=== PATIENT | female | born 1990 | race Hispanic/Latino ===

== ENCOUNTER 2023-07-02 22:39 | Observation (INO) | payer SELFPAY ==
--- OUTSIDE RECORDS SUMMARY | 2023-07-02 22:43 | XMS REPORT | Continuity of Care Document ---
:1990 Author Organization [facility] t Address [address] [facility] [address] [place] [address] Care Team Providers Name Role Phone Monika Pugh Primary Care Physician [phone] Visit, Silvio Nurse Attending Clinician Unavailable Monika Pugh Attending Clinician [phone] MONIKA MURRIETA Attending Clinician Unavailable NurseAntonio Exp Cprit Obgyn Attending Clinician Unavail able Doctor Unassigned, Bruin Attending Clinician Unavailable Noel Oropeza Attending Clinician NOEL DALTON Attending Clinician Unavailable NurseJillian Attending Clinician Unavailable Davin Ramirez MD Attending Clinician DAVIN RAMIREZ Attending Clinician Unavailable Pgy2 Attending Clinician Unavailable Js Dennis MD Attending Clinician Gray Aguilar Attending Clinician GRAY ROLLINS Attending Clinician Unavailable GRAY ROLLINS Admitting Clinician Unavailable Payers Payer Name Policy Type Policy Number Effective Date Expiration Date S ource Problems Condition Condition Condition Status Onset Resolution Last Treating Co mments Source Name Details Category Date Date Treatment Clinician Date Obesity Obesity Disease Active Univers (BMI (BMI 2-23 ity of 30-39.9) 30-39.9) 00:00: [place] 00 Medical Branch Encounter Encounter Disease Active 2018-11 Uni vers for for 1-18 it[place] of surve[place] of 00 Medical injectable injectable Br anch contracept contracept jules jules Depo-Prove Depo-Prove Disease Active 2018-11 U nivers ra ra -18 [place] of contrace[place] j[place] status j[place] status 00 Me dical Branch Other Other Disease Active 2018-11 Univers general general 18 ity of counseling counseling [place] and advice and advice 00 Me dical for for Branch contracept contracept jules jules management management Breakthrou Breakthrou Disease Active U nivers gh gh 2-26 ity of bleeding bleeding 00:00: [place] on depo on depo 00 Medical provera provera Branch Papanicola Papanicola Disease Active Overview : Univers ou smear ou smear 06-29 Formattin ity of of cervix of cervix 00:00: [place] of [place] with high with high 00 note Medi chika grade grade might be Branch squamous squamous different intraepith intraepith from the elial elial original. lesion lesion 08/25/2018 (HGSIL) (HGSIL) - LEEP done. Need for Need for Disease Active 2016-11 Unive rs influenza influenza 0-19 ity of vaccinatio vacc[place] Well woman Well woman Disease Active U nivers exam exam 5-03 ity of 00:00: [place] 00 Medical Branch Allergies, Adverse Reactions, Alerts Allergy Allergy Status Severity Reaction(s) Onset Inactive Treating Comm ents Source Name Type Date Date Clinician Naproxen Propensi Active Anaphylaxis U nivers Sodium ty to 07-22 ity of adverse 00:00: [place] reaction 00 Medical s Branch NAPROXEN DRUG Active Anaphylaxis Uni vers SODIUM INGREDI 07-22 ity of 00:00: [place] 00 Medical Branch Social History Social Habit Start Date Stop Date Quantity Comments Source Gender identity [facility] [place] [facility] Sexual orientation Univer sity [facility] Exposure to 2023-01-09 2023-01-19 Not sure University SARS-CoV-2 (event) 00:00:00 09:16:00 [facility] Alcohol intake 2023-01-19 2023-01-19 0 /d University of 00:00:00 00:00:00 [facility] Tobacco use and 2023-01-14 2023-01-14 Smokeless Universit y of exposure 00:00:00 00:00:00 tobacco non-user [facility] dical [facility] History of Social 2021-11-12 2021-11-12 Univers ity of function 00:00:00 00:00:00 [facility] Sex [birth year] Universit y of 00:00:00 00:00:00 [facility] Smoking Status Start Date Stop Date Source Never smoked tobacco [facility] Medications Ordered Filled Start Stop Current Ordering Indication Dosage Frequency Signature Comments Components Source Medication Medication Date Date Medication? Clinician (SIG) Name Name medroxyPROG 2023- Yes [id number] 150mg Univers ESTERone 05-14 ity of (DEPO-PROVE 14:45: 15:44 [place] RA) syringe 00 :00 Medical 150 mg Branch medroxyPROG 2023- Yes [id number] 150mg 150 mg, Univers ESTERone 05-14 Intramuscu ity of (DEPO-PROVE 14:45: 15:44 [facility] [place] RA) syringe 00 :00 [id number], Med ical 150 mg 3 doses, Branch First dose on Wed05/14/23 at 0945, Last dose on Wed10/29/23 at 0945, Routine medroxyPROG 2022- No [id number] 150mg Univers ESTERone 01-14 ity of (DEPO-PROVE 17:00: 16:23 [place] RA) syringe 00 :00 Medical 150 mg Branch medroxyPROG 2022-0 2022- No [id number] 150mg 150 mg, Univers ESTERone 01-14 Intramuscu ity of (DEPO-PROVE 17:00: 16:23 lar, ONCE, [place] RA) syringe 00 :00 1 dose, On Me dical 150 mg [place] Branch 01/14/23 at 1100, Routine medroxyPROG 2022- No [id number] 150mg Univers ESTERone 01-14 ity of (DEPO-PROVE 17:00: 16:23 [place] RA) syringe 00 :00 Medical 150 mg Branch medroxyPROG 2022- No [id number] 150mg 150 mg, Univers ESTERone 01-14 Intramuscu ity of (DEPO-PROVE 17:00: 16:23 lar, ONCE, [place] RA) syringe 00 :00 1 dose, On Me dical 150 mg [place] Branch 01/14/23 at 1100, Routine medroxyPROG 2021-11- No [id number] 150mg Univers ESTERone 12-23 ity of (DEPO-PROVE 15:00: 22:27 [place] RA) syringe 00 :00 Medical 150 mg Branch medroxyPROG 2021-11- No [id number] 150mg 150 mg, Univers ESTERone 12-23 Intramuscu ity of (DEPO-PROVE 15:00: 22:27 lar, ONCE, [place] RA) syringe 00 :00 1 dose, On Me dical 150 mg [place] Branch 10/22/22 at 0900, Routine ferrous 2020-11 Yes [id number] 325mg Take 1 Un jai sulfate 325 2-22 tablet by ity of mg (65 mg 00:00: mouth 2 [place] iron) 00 (two) Medical tablet times Branch daily. ferrous 2020-11 Yes [id number] 325mg Take 1 Un jai sulfate 325 2-22 tablet by ity of mg (65 mg 00:00: mouth 2 [place] iron) 00 (two) Medical tablet times Branch daily. ferrous 2020-11- No [id number] 325mg Take 1 U nivers sulfate 325 01-13- tablet by it y of mg (65 mg 00:00: 00:[place] :00 (two) Medical tablet times Branch daily. ferrous 2020-11- No [id number] 325mg Take 1 U nivers sulfate 325 01-13 tablet by it y of mg (65 mg 00:00: 00:00 [place] 00 :00 (two) Medical [facility] times Branch daily. Immunizations Ordered Filled Immunization Date Status Comments [facility] e Immunization Name Name HPV9 2023-03-04 Completed University of 00:00:00 [facility] HPV9 2023-03-04 Completed University of 00:00:00 [facility] HPV9 2023-03-04 Completed University of 00:00:00 [facility] HPV9 2023-03-04 Completed University of 00:00:00 [facility] HPV9 2023-01-19 Completed University of 00:00:00 [facility] HPV9 2023-01-19 Completed University of 00:00:00 [facility] HPV9 2023-01-19 Completed University of 00:00:00 [facility] HPV9 2023-01-19 Completed University of 00:00:00 [facility] HPV9 2023-01-19 Completed University of 00:00:00 [facility] HPV9 2023-01-19 Completed University of 00:00:00 [facility] Influenza Virus 2022-10-22 Completed Universit y of Vaccine Quad .5 mL 00:00:00 [facility] 6+ MO Branch Influenza Virus 2022-10-22 Completed Universit y of Vaccine Quad .5 mL 00:00:00 [facility] 6+ MO Branch Influenza Virus 2022-10-22 Completed Universit y of Vaccine Quad .5 mL 00:00:00 [facility] 6+ MO Branch Influenza Virus 2022-10-22 Completed Universit y of Vaccine Quad .5 mL 00:00:00 [facility] 6+ MO Branch Influenza Virus 2022-10-22 Completed Universit y of Vaccine Quad .5 mL 00:00:00 [facility] 6+ MO Branch Influenza Virus 2022-10-22 Completed Universit y of Vaccine Quad .5 mL 00:00:00 [facility] IM 6+ MO Branch Influenza Virus 2022-10-22 Completed Universit y of Vaccine Quad .5 mL 00:00:00 [facility] 6+ MO Branch Influenza Virus 2022-10-22 Completed Universit y of Vaccine Quad .5 mL 00:00:00 [facility] 6+ MO Branch Influenza Virus 2022-10-22 Completed Universit y of Vaccine Quad .5 mL 00:00:00 [facility] 6+ MO Branch Influenza Virus 2021-11-12 Completed Universit y of Vaccine Quad .5 mL 00:00:00 [place] [facility] IM 6+ MO Branch Influenza Virus 2021-11-12 Completed Universit y of Vaccine Quad .5 mL 00:00:00 [place] [facility] IM 6+ MO Branch Influenza Virus 2021-11-12 Completed Universit y of Vaccine Quad .5 mL 00:00:00 [place] [facility] IM 6+ MO Branch Influenza Virus 2021-11-12 Completed Universit y of Vaccine Quad .5 mL 00:00:00 [place] [facility] IM 6+ MO Branch Influenza Virus 2021-11-12 Completed Universit y of Vaccine Quad .5 mL 00:00:00 [place] [facility] IM 6+ MO Branch Influenza Virus 2021-11-12 Completed Universit y of Vaccine Quad .5 mL 00:00:00 [place] [facility] IM 6+ MO Branch Influenza Virus 2021-11-12 Completed Universit y of Vaccine Quad .5 mL 00:00:00 [place] [facility] 6+ MO Branch Influenza Virus 2021-11-12 Completed Universit y of Vaccine Quad .5 mL 00:00:00 [place] [facility] IM 6+ MO Branch Influenza Virus 2021-11-12 Completed Universit y of Vaccine Quad .5 mL 00:00:00 [place] [facility] 6+ MO Branch Influenza Virus 2021-11-12 Completed Universit y of Vaccine Quad .5 mL 00:00:00 [facility] 6+ MO Branch SARS-COV-2 COVID-19 2021-06-28 Completed Unive rsity of VACCINE - (MODERNA) 00:00:00 [facility] SARS-COV-2 COVID-19 2021-06-28 Completed Unive rsity of VACCINE - (MODERNA) 00:00:00 [facility] SARS-COV-2 COVID-19 2021-06-28 Completed Unive rsity of VACCINE - (MODERNA) 00:00:00 [facility] SARS-COV-2 COVID-19 2021-06-28 Completed Unive rsity of VACCINE - (MODERNA) 00:00:00 [facility] SARS-COV-2 COVID-19 2021-06-28 Completed Unive rsity of VACCINE - (MODERNA) 00:00:00 [facility] SARS-COV-2 COVID-19 2021-06-28 Completed Unive rsity of VACCINE - (MODERNA) 00:00:00 [facility] SARS-COV-2 COVID-19 2021-06-28 Completed Unive rsity of VACCINE - (MODERNA) 00:00:00 [facility] SARS-COV-2 COVID-19 2021-06-28 Completed Unive rsity of VACCINE - (MODERNA) 00:00:00 [facility] SARS-COV-2 COVID-19 2021-05-31 Completed Unive rsity of VACCINE - (MODERNA) 00:00:00 [facility] SARS-COV-2 COVID-19 2021-05-31 Completed Unive rsity of VACCINE - (MODERNA) 00:00:00 [facility] SARS-COV-2 COVID-19 2021-05-31 Completed Unive rsity of VACCINE - (MODERNA) 00:00:00 [facility] SARS-COV-2 COVID-19 2021-05-31 Completed Unive rsity of VACCINE - (MODERNA) 00:00:00 [facility] SARS-COV-2 COVID-19 2021-05-31 Completed Unive rsity of VACCINE - (MODERNA) 00:00:00 [facility] SARS-COV-2 COVID-19 2021-05-31 Completed Unive rsity of VACCINE - (MODERNA) 00:00:00 [facility] SARS-COV-2 COVID-19 2021-05-31 Completed Unive rsity of VACCINE - (MODERNA) 00:00:00 [facility] SARS-COV-2 COVID-19 2021-05-31 Completed Unive rsity of VACCINE - (MODERNA) 00:00:00 [facility] Influenza Virus 2020-09-11 Completed Universit y of Vaccine Quad .5 mL 00:00:00 [facility] IM 6+ MO Branch Influenza Virus 2020-09-11 Completed Universit y of Vaccine Quad .5 mL 00:00:00 [place] [facility] IM 6+ MO Branch Influenza Virus 2020-09-11 Completed Universit y of Vaccine Quad .5 mL 00:00:00 [place] [facility] IM 6+ MO Branch Influenza Virus 2020-09-11 Completed Universit y of Vaccine Quad .5 mL 00:00:00 [place] [facility] IM 6+ MO Branch Influenza Virus 2020-09-11 Completed Universit y of Vaccine Quad .5 mL 00:00:00 [facility] IM 6+ MO Branch Influenza Virus 2020-09-11 Completed Universit y of Vaccine Quad .5 mL 00:00:00 [place] [facility] IM 6+ MO Branch Influenza Virus 2020-09-11 Completed Universit y of Vaccine Quad .5 mL 00:00:00 [place] [facility] IM 6+ MO Branch Influenza Virus 2020-09-11 Completed Universit y of Vaccine Quad .5 mL 00:00:00 [place] [facility] IM 6+ MO Branch Influenza Virus 2020-09-11 Completed Universit y of Vaccine Quad .5 mL 00:00:00 [place] [facility] IM 6+ MO Branch Influenza Virus 2020-09-11 Completed Universit y of Vaccine Quad .5 mL 00:00:00 [place] [facility] IM 6+ MO Branch Influenza Virus 2019-10-09 Completed Universit y of Vaccine Quad .5 mL 00:00:00 [place] [facility] IM 6+ MO Branch Influenza Virus 2019-10-09 Completed Universit y of Vaccine Quad .5 mL 00:00:00 [facility] 6+ MO Branch Influenza Virus 2019-10-09 Completed Universit y of Vaccine Quad .5 mL 00:00:00 [place] [facility] 6+ MO Branch Influenza Virus 2019-10-09 Completed Universit y of Vaccine Quad .5 mL 00:00:00 [place] [facility] 6+ MO Branch Influenza Virus 2019-10-09 Completed Universit y of Vaccine Quad .5 mL 00:00:00 [place] [facility] 6+ MO Branch Influenza Virus 2019-10-09 Completed Universit y of Vaccine Quad .5 mL 00:00:00 [place] [facility] 6+ MO Branch Influenza Virus 2019-10-09 Completed Universit y of Vaccine Quad .5 mL 00:00:00 [place] [facility] 6+ MO Branch Influenza Virus 2019-10-09 Completed Universit y of Vaccine Quad .5 mL 00:00:00 [place] [facility] IM 6+ MO Branch Influenza Virus 2019-10-09 Completed Universit y of Vaccine Quad .5 mL 00:00:00 [place] [facility] IM 6+ MO Branch Influenza Virus 2019-10-09 Completed Universit y of Vaccine Quad .5 mL 00:00:00 [facility] 6+ MO Branch Varicella 2018-04-14 Completed University of (varivax)(chicken 00:00:00 [place] M edical pox) Branch Varicella 2018-04-14 Completed University of (varivax)(chicken 00:00:00 [place] M edical pox) Branch Varicella 2018-04-14 Completed University of (varivax)(chicken 00:00:00 [place] M edical pox) Branch Varicella 2018-04-14 Completed University of (varivax)(chicken 00:00:00 [place] M edical pox) Branch Varicella 2018-04-14 Completed University of (varivax)(chicken 00:00:00 [place] M edical pox) Branch Varicella 2018-04-14 Completed University of (varivax)(chicken 00:00:00 [place] M edical pox) Branch Varicella 2018-04-14 Completed University of (varivax)(chicken 00:00:00 [place] M edical pox) Branch Varicella 2018-04-14 Completed University of (varivax)(chicken 00:00:00 [place] M edical pox) Branch Varicella 2018-04-14 Completed University of (varivax)(chicken 00:00:00 [place] M edical pox) Branch Varicella 2018-04-14 Completed University of (varivax)(chicken 00:00:00 [place] M edical pox) Branch TDAP 2018-02-01 Completed University of 00:00:00 [facility] TDAP 2018-02-01 Completed University of 00:00:00 [facility] TDAP 2018-02-01 Completed University of 00:00:00 [facility] TDAP 2018-02-01 Completed University of 00:00:00 [facility] TDAP 2018-02-01 Completed University of 00:00:00 [facility] TDAP 2018-02-01 Completed University of 00:00:00 [facility] TDAP 2018-02-01 Completed University of 00:00:00 [facility] TDAP 2018-02-01 Completed University of 00:00:00 [facility] TDAP 2018-02-01 Completed University of 00:00:00 [facility] TDAP 2018-02-01 Completed University of 00:00:00 [facility] Influenza Virus 2017-09-09 Completed Universit y of Vaccine Quad IM 3+ 00:00:00 [facility] Influenza Virus 2017-09-09 Completed Universit y of Vaccine Quad IM 3+ 00:00:00 [facility] Influenza Virus 2017-09-09 Completed Universit y of Vaccine Quad IM 3+ 00:00:00 [facility] Influenza Virus 2017-09-09 Completed Universit y of Vaccine Quad IM 3+ 00:00:00 [facility] Influenza Virus 2017-09-09 Completed Universit y of Vaccine Quad IM 3+ 00:00:00 [facility] Influenza Virus 2017-09-09 Completed Universit y of Vaccine Quad IM 3+ 00:00:00 [facility] Influenza Virus 2017-09-09 Completed Universit y of Vaccine Quad IM 3+ 00:00:00 [facility] Influenza Virus 2017-09-09 Completed Universit y of Vaccine Quad IM 3+ 00:00:00 [facility] Influenza Virus 2017-09-09 Completed Universit y of Vaccine Quad IM 3+ 00:00:00 [facility] Influenza Virus 2017-09-09 Completed Universit y of Vaccine Quad IM 3+ 00:00:00 [facility] TDAP 2015-12-03 Completed University of 00:00:00 [facility] TDAP 2015-12-03 Completed University of 00:00:00 [facility] TDAP 2015-12-03 Completed University of 00:00:00 [facility] TDAP 2015-12-03 Completed University of 00:00:00 [facility] TDAP 2015-12-03 Completed University of 00:00:00 [facility] TDAP 2015-12-03 Completed University of 00:00:00 [facility] TDAP 2015-12-03 Completed University of 00:00:00 [facility] TDAP 2015-12-03 Completed University of 00:00:00 [facility] TDAP 2015-12-03 Completed University of 00:00:00 [facility] TDAP 2015-12-03 Completed University of 00:00:00 [facility] Influenza Virus 2015-08-15 Completed Universit y of Vaccine Quad IM 3+ 00:00:00 [facility] Influenza Virus 2015-08-15 Completed Universit y of Vaccine Quad IM 3+ 00:00:00 [facility] Influenza Virus 2015-08-15 Completed Universit y of Vaccine Quad IM 3+ 00:00:00 [facility] Influenza Virus 2015-08-15 Completed Universit y of Vaccine Quad IM 3+ 00:00:00 [facility] Influenza Virus 2015-08-15 Completed Universit y of Vaccine Quad IM 3+ 00:00:00 [facility] Influenza Virus 2015-08-15 Completed Universit y of Vaccine Quad IM 3+ 00:00:00 [facility] Influenza Virus 2015-08-15 Completed Universit y of Vaccine Quad IM 3+ 00:00:00 [facility] Branch Influenza Virus 2015-08-15 Completed Universit y of Vaccine Quad IM 3+ 00:00:00 [facility] Branch Influenza Virus 2015-08-15 Completed Universit y of Vaccine Quad IM 3+ 00:00:00 [facility] Branch Influenza Virus 2015-08-15 Completed Universit y of Vaccine Quad IM 3+ 00:00:00 [facility] Vital Signs Vital Name Observation Time Observation Value Comments Source Systolic blood 2023-05-14 13:23:00 100 mm[Hg] Univer sity of pressure [facility] Branch Diastolic blood 2023-05-14 13:23:00 60 mm[Hg] Unive rsity of pressure [facility] Branch Heart rate 2023-05-14 13:23:00 68 /min Universi ty of [facility] Body temperature 2023-05-14 13:23:00 36.22 Kimberlyn Univ ersity of [facility] Branch Respiratory rate 2023-05-14 13:23:00 17 /min Univ ersity of [facility] Branch Body height 2023-05-14 13:23:00 157.5 cm [facility]i ty [facility] [place] [facility] Body weight 2023-05-14 13:23:00 62.46 kg Universi ty [facility] [place] [facility] BMI 2023-05-14 13:23:00 25.19 kg/m2 [facility]i ty [facility] [place] [facility] Systolic blood 2023-05-07 19:53:00 106 mm[Hg] Univer sity of pressure [facility] Branch Diastolic blood 2023-05-07 19:53:00 74 mm[Hg] Unive rsity of pressure [facility] Branch Heart rate 2023-05-07 19:53:00 73 /min [facility]i ty [facility] [place] [facility] Body temperature 2023-05-07 19:53:00 36.44 Kimberlyn Univ ersity of [place] [facility] Respiratory rate 2023-05-07 19:53:00 18 /min Univ ersity of [place] [facility] Body height 2023-05-07 19:53:00 157.5 cm [facility]i ty [facility] [place] [facility] Body weight 2023-05-07 19:53:00 61.735 kg [facility] [place] [facility] BMI 2023-05-07 19:53:00 24.89 kg/m2 Universi ty of [facility] Branch Body temperature 2023-03-04 20:26:00 36.33 Kimberlyn Univ ersity of [place] [facility] Respiratory rate 2023-03-04 20:26:00 18 /min Univ ersity of [place] [facility] Body weight 2023-03-04 20:26:00 62.959 kg [facility]i ty [facility] [place] [facility] BMI 2023-03-04 20:26:00 24.59 kg/m2 [facility] [place] [facility] Body temperature 2023-01-19 15:16:00 36.17 Kimberlyn Univ ersity of [place] [facility] Body weight 2023-01-19 15:16:00 64.864 kg [facility]i ty [facility] [place] [facility] BMI 2023-01-19 15:16:00 25.33 kg/m2 [facility] ty [facility] [place] [facility] Systolic blood 2023-01-14 15:24:00 107 mm[Hg] Univer sity of pressure [place] [facility] Diastolic blood 2023-01-14 15:24:00 68 mm[Hg] Unive rsity of pressure [place] [facility] Heart rate 2023-01-14 15:24:00 59 /min [facility]i ty [facility] [place] [facility] Body temperature 2023-01-14 15:24:00 36.22 Kimberlyn Univ ersity of [place] [facility] Respiratory rate 2023-01-14 15:24:00 18 /min Univ ersity of [place] [facility] Body height 2023-01-14 15:24:00 160 cm [facility] [place] [facility] Body weight 2023-01-14 15:24:00 87.272 kg [facility] [place] [facility] BMI 2023-01-14 15:24:00 34.08 kg/m2 [facility] [place] [facility] Systolic blood 2022-10-22 15:10:00 104 mm[Hg] Univer sity of pressure [place] [facility] Diastolic blood 2022-10-22 15:10:00 65 mm[Hg] Unive rsity of pressure [place] [facility] Heart rate 2022-10-22 15:10:00 60 /min [facility]i ty [facility] [place] [facility] Body temperature 2022-10-22 15:10:00 36.44 Kimberlyn Univ ersity of [place] [facility] Respiratory rate 2022-10-22 15:10:00 18 /min Univ ersity of [place] [facility] Body height 2022-10-22 15:10:00 160 cm [facility] Body weight 2022-10-22 15:10:00 66.769 kg [facility] BMI 2022-10-22 15:10:00 26.08 kg/m2 [facility] Procedures Procedure Date / Time Performing Clinician Source Performed POCT TEST 2023-05-14 00:00:00 [facility] 2023-05-07 20:10:00 Monika Murrieta [facility] GARDASIL 9 (HPV 9V) 2023-03-04 19:32:18 [facility] 2023-02-24 05:01:00 Doctor Unassigned, No [facility] GARDASIL 9 (HPV 9V) 2023-01-19 15:17:55 [facility] 2023-01-14 15:29:00 Monika Murrieta Uni [facility] "RWSP EL ONLY" FLU 2022-10-22 15:12:29 [facility] 6+ Medical Bran ch MONTHS, IM, QUAD (FLUZONE/FLULAVAL/FLUARI X) Encounters Start End Encounter Admission Attending Care Care Encounter Source Date/Time Date/Time Type Type Clinicians Facility Department ID 2023-08-06 2023-08-06 Outpatient R [facility] [id number] Univers 09:00:00 09:00:00 ity [facility] 2023-07-02 2023-07-02 Outpatient SFA SFA [id number] [place] 07:41:49 07:41:49 [id number] F Philip 2023-05-14 2023-05-14 Nurse Visit, CoreyRmchp Nurse [facility] [id number] Univers 13:30:00 13:30:00 Visit Monika Murrieta MMI TEACHER [id number] ity [facility] [id number] Jacoby as MATERNAL [id number] Med ical & CHILD [address] [place] [address] 2023-05-14 2023-05-14 Outpatient R LIT, [facility] [id number] Univers 13:30:00 08:39:30 MONIKA ity o [facility] 2023-05-07 2023-05-07 Outpatient R LIT, [facility] [id number] Univers 15:00:00 16:07:22 MONIKA alstony o [facility] 2023-05-07 2023-05-07 [id number] Univers 15:00:00 16:07:22 Visit Monika Conroy MMI TEACHER 350.1.13.10 ity [facility] [id number] Jacoby as MATERNAL [phone] [address] 2023-03-04 2023-03-04 [facility] [id number] Univers 15:00:00 15:34:18 MONIKA aleciatamika o [facility] 2023-03-04 2023-03-04 Nurse Nurse, Antonio Rmchp Exp Cprit Obgyn U [facility] 1.2.840.114 [id number] Univers 15:00:00 15:15:00 Visit Monika Murrieta MMI TEACHER 350.1.13. 10 ity [facility] [id number] Jacoyb as MATERNAL [id number] [facility] & [address] 2023-02-25 2023-02-25 Outpatient R LIT, [facility] [id number] Univers 09:30:00 09:30:00 MONIKA ity o [facility] 2023-02-24 2023-02-24 Orders Doctor WHITLEY 1.2.840.114 [id number] Univers 00:00:00 00:00:00 Only Unassigned, JACQUELINE [id number] ity of [place] [facility] 4.2.7.2.686 Jacoby as [id number] [address] 2023-02-11 2023-02-11 Outpatient R LIT, [facility] [id number] Univers 08:30:00 08:30:00 MONIKA almanzar o [facility] 2023-02-11 2023-02-11 Outpatient R LIT [facility] [id number] Univers 08:30:00 08:30:00 MONIKA ity o [facility] 2023-01-19 2023-01-19 Nurse Nurse, Antonio Taylor Exp Cprit Obgyn U [facility] 1.2.840.114 [id number] Univers 09:30:00 09:30:00 Visit Monika Murrieta MMI TEACHER 350.1.13. 10 ity of [place] 4.2.7.2.686 Jacoby as MATERNAL [phone] [facility] & [address] 2023-01-19 2023-01-19 Outpatient R LIT [facility] [id number] [facility] 09:30:00 09:14:46 MONIKA almanzar o [facility] 2023-01-14 2023-01-14 Outpatient R LIT [facility] [id number] Univers 09:15:00 10:25:12 MONIKA almanzar o [facility] 2023-01-14 2023-01-14 Office Lit [facility] 1.2.045.653 [id number] Univers 09:15:00 10:25:12 Visit Monika Conroy MMI TEACHER 350.1.13.10 ity of [place] 4.2.7.2.686 Jacoby as MATERNAL [id number] [facility] & [address] 2023-01-14 2023-01-14 Outpatient R LIT [facility] [id number] Univers 09:15:00 09:15:00 MONIKA almanzar o [facility] 2022-10-22 2022-10-22 Outpatient R LIT [facility] [id number] Univers 09:00:00 09:11:22 MONIKA alstony o [facility] 2022-10-22 2022-10-22 Nurse Visit, Silvio Nurse [facility] 1.2 .840.114 [id number] Univers 09:00:00 09:11:22 Visit Monika Murrieta MMI TEACHER 350.1.13. 10 ity of [facility] 4.2.7.2.686 Jacoby as MATERNAL [id number] [facility] & CHILD [address] [place] [address] 2022-07-30 2022-07-30 Nurse Visit, 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 [id number] ity of [facility] 4.2.7.2.686 Jacoby as MATERNAL [id number] [facility] & CHILD [address] [place] [address] 2022-07-30 2022-07-30 Outpatient R KRYSTLE [facility] [id number] Univers 09:00:00 09:00:00 NOEL jiang [facility] 2022-07-30 2022-07-30 Outpatient Ophelia DALTON [facility] [id number] Univers 08:30:00 08:30:00 MARGARITORICHARD alstontamika jiang [facility] 2022-07-30 2022-07-30 Outpatient R KRYSTLE [facility] [id number] Univers 08:30:00 08:30:00 JANETRICHARD aleciatamika jiang [facility] 2022-07-30 2022-07-30 Orders Doctor GUTIERREZ 1.2.840.114 [id number] Univers 00:00:00 00:00:00 Only Unassigned, JACQUELINE 350.1.13.10 ity of [place] [facility] 4.2.7.2.686 Jacoby as [id number] [address] 2022-07-30 2022-07-[address] [facility] 1.2.840.114 [id number] Univers 00:00:00 00:00:00 Monika C MMI TEACHER [id number] ity of [facility] 4.2.7.2.686 Jacoby as MATERNAL [id number] [facility] & CHILD [address] [place] [address] 2022-07-29 2022-07-29 Outpatient R [facility] [id number] Univers 08:00:00 08:00:00 ity of [facility] 2022-05-07 2022-05-07 Nurse Visit, Ang-Rmchp Nurse [facility] 1.2 .840.114 [id number] Univers 08:00:00 08:12:29 Visit Noel Dalton Ophelia MMI TEACHER 350.1.13.10 ity of [facility] 4.2.7.2.686 Jacoby as MATERNAL [id number] [facility] & CHILD [address] [place] [address] 2022-05-07 2022-05-07 Outpatient R [facility] [id number] Univers 08:00:00 08:00:00 ity of [facility] 2022-05-07 2022-05-07 Outpatient R KRYSTLE [facility] [id number] Univers 08:00:00 08:00:00 NOEL jiang [facility] 2022-05-06 2022-05-06 [facility] 1.2.840.114 [id number] Univers 00:00:00 00:00:00 Monika Conroy MMI TEACHER 350.1.13.10 ity of [facility] 4.2.7.2.686 Jacoby as MATERNAL [phone] [facility] & CHILD [address] [place] [address] 2022-04-06 2022-04-06 Office Paulslick, [facility] 1.2.595.929 [id number] Univers 09:00:00 09:12:23 Visit Monika Conroy MMI TEACHER 350.1.13.10 ity of [facility] 4.2.7.2.686 Jacoby as MATERNAL [id number] [facility] & CHILD [address] [place] [address] 2022-04-06 2022-04-06 Outpatient R AKINSIPE, [facility] [id number] Univers 09:00:00 09:12:23 MONIKA ity o [facility] 2022-04-06 2022-04-06 Outpatient R AKINSIPE, [facility] [id number] Univers 09:00:00 09:00:00 MONIKA ity o [facility] 2022-04-06 2022-04-06 Outpatient R AKINSIPE, [facility] [id number] Univers 09:00:00 09:00:00 MONIKA ity o [facility] 2022-02-042022-02-04 Outpatient R LIT, [facility] [id number] Univers 09:00:00 10:00:17 MONIKA almanzar o [facility] 2022-02-04 2022-02-04 [facility] 1.2.042.032 [id number] Univers 09:00:00 10:00:[address] [facility] MMI TEACHER [id number] [address]y [address]686 Jacoby as MATERNAL [id number] [facility] & CHILD [address] [place] [address] 2022-02-04 2022-02-04 Outpatient R CHRISTOPHERPE, [facility] [id number] Univers 09:00:00 09:00:00 MONIKA almanzar [facility] 2022-02-04 2022-02-04 Orders Doctor GUTIERREZ 1.2.840.114 [id number] Univers 00:00:00 00:00:00 Only Unassigned, JACQUELINE 350.1.13.10 ity of [place] [id number] Jacoby as [id number] [address] 2021-11-12 2021-11-12 Outpatient R LIT, [facility] [id number] Univers 09:45:00 10:55:23 MONIKA almanzar o [facility] 2021-11-12 2021-11-12 [facility] [id number] Univers 09:45:00 10:55:[address] [facility] MMI TEACHER 350.1.13.10 ity [facility] 4.2.7.2.686 Jacoby as MATERNAL [id number] [facility] & CHILD [address] [place] [address] 2021-11-12 2021-11-12 Outpatient R CHRISTOPHERPE, [facility] [id number] Univers 09:45:00 09:45:00 MONIKA almanzar o [facility] 2021-11-12 2021-11-12 Outpatient R KRYSTLE, [facility] [id number] Univers 08:15:00 08:15:00 NOEL ittamika o [facility] 2021-10-27 2021-10-27 Nurse Nurse, Jillian Reyes [employer]etics [facility] 1 .2.840.114 [id number] Univers 14:35:15 15:05:15 Visit James Davin Silver SPECIALTY 350.1.13.10 ity of [place] [id number] [facility] [address] 2021-10-27 2021-10-27 Outpatient R JAMESDAVIN [facility] [id number] Univers 14:30:00 14:30:00 ity of [facility] 2021-10-27 2021-10-27 Orders Doctor GUTIERREZ 1.2.840.114 [id number] Univers 00:00:00 00:00:00 Only Unassigned, JACQUELINE 350.1.13.10 ity of [facility] 4.2.7.2.686 Jacoby as [id number] [facility] [address] 2021-08-20 2021-08-20 [facility] 1.2 .840.114 [id number] Univers 09:13:58 09:28:58 Visit Noel Dalton MMI TEACHER 350.1.13.10 ity of [facility] 4.2.7.2.686 Jacoby as MATERNAL [id number] Med ical & CHILD [address] [place] [address] 2021-08-20 2021-08-20 Outpatient R [facility] [id number] Univers 09:00:00 09:00:00 ity of [facility] 2021-07-16 2021-07-16 Office Pgy2 [facility] 1.2.696.509 [id number] Univers 13:56:49 15:15:24 Visit Js Dennis [place] 350.1.13.10 ity of [facility] 4.2.7.2.[place] [id number] [facility] [address] 2021-07-16 2021-07-16 Outpatient R [facility] [id number] Univers 13:20:00 13:20:00 ity of [facility] 2021-06-11 2021-06-11 Telephone Krystle [facility] [id number] Univers 00:00:00 00:00:00 Roshunda R MMI TEACHER 350.1.13.10 ity of [place] 4.2.7.2.686 Jacoby as MATERNAL [id number] [facility] & CHILD [address] [place] [address] 2021-06-09 2021-06-09 Hospital Krystle BENIGNO 1.2.840.114 [id number] Univers 09:30:00 23:59:00 Encounter Margaritorichard R HEALTH 350.1.13.10 ity of [facility] 4.2.7.2.[place] [id number] [facility] [address] [place] [address] 2021-06-09 2021-06-09 Outpatient R KRYSTLE [facility] [id number] Univers 00:00:00 00:00:00 MARGARITORICHARD almanzar o [facility] 2021-06-04 2021-06-04 [facility] [id number] Univers 16:15:00 16:15:00 JANETPEREZ almanzar o [facility] 2021-06-03 2021-06-03 Office Krystle [facility] 1.2.840.114 [id number] Univers 08:15:26 08:46:14 Visit Margaritopatriciamckenna Ophelia MMI TEACHER 350.1.13.10 ity of [facility] 4.2.7.2.686 Jacoby as MATERNAL [phone] [address] 2021-06-03 2021-06-03 Outpatient R KRYSTLE [facility] [id number] Univers 08:15:00 08:15:00 NOEL jenelle o [facility] 2021-05-29 2021-05-29 Outpatient R [facility] [id number] Univers 08:30:00 08:30:00 ity of [facility] 2021-05-28 2021-05-28 Nurse Visit, Antonio-Rmchp Nurse [facility] 1.2 .840.114 [id number] Univers 09:00:12 09:28:58 Visit Monika Murrieta MMI TEACHER 350.1.13. 10 ity of [facility] 4.2.7.2.686 Jacoby as MATERNAL [id number] [facility] & CHILD [address] [place] [address] 2021-05-28 2021-05-28 Outpatient R [facility] [id number] Univers 09:00:00 09:00:00 ity [facility] 2021-03-06 2021-03-06 Outpatient R [facility] [id number] Univers 09:00:00 09:00:00 ity of [facility] 2021-03-06 2021-03-06 Nurse Visit, Silvio Nurse [facility] 1.2 .840.114 [id number] Univers 08:23:56 08:41:45 Visit Noel Dalton MMI TEACHER 350.1.13.10 ity of [facility] 4.2.7.2.686 Jacoby as MATERNAL [id number] [facility] & CHILD [address] [place] [address] 2021-03-06 2021-03-06 Outpatient R KRYSTLE [facility] [id number] Univers 08:30:00 08:30:00 [facility] 2020-12-27 2020-12-27 Orders Doctor GUTIERREZ 1.2.840.114 [id number] Univers 00:00:00 00:00:00 Only Unassigned, JACQUELINE 350.1.13.10 ity of [place] [facility] 4.2.7.2.686 Jacoby as [id number] [address] 2020-12-12 2020-12-12 Nurse Visit, Silvio Nurse [facility] 1.2 .840.114 [id number] Univers 15:30:31 15:45:27 Visit Noel Dalton MMI TEACHER 350.1.13.10 ity of [facility] 4.2.7.2.686 Jacoby as MATERNAL [id number] [facility] & CHILD [address] [place] [address] 2020-12-12 2020-12-12 Outpatient R [facility] [id number] Univers 15:30:00 15:30:00 ity of [facility] 2020-12-04 2020-12-04 Outpatient R [facility] [id number] Univers 09:00:00 09:00:00 ity [facility] 2020-11-22 2020-11-22 Emergency Ayo COCESAR 1.2.840.114 [id number] Univers 01:27:00 03:23:00 Gray Abrahan Bulpitt 350.1.13.10 i ty [facility] 4.2.7.2.686 [facility] [phone] [facility] [address] 2020-11-22 2020-11-22 Emergency X AYO [facility] ERT [id number] Univers 01:27:00 03:23:00 GRAY ity [facility] 2020-10-10 2020-10-10 Outpatient R KRYSTLE [facility] [id number] Univers 15:00:00 15:00:00 NOEL almanzar o f [facility] 2020-10-10 2020-10-10 [facility] 1.2.840.114 [id number] Univers 09:36:10 10:36:36 Visit Noel Jacinto MMI TEACHER 350.1.13.10 ity [facility] 4.2.7.2.686 Jacoby as MATERNAL [phone] Med ical & CHILD [address] [place] [address] 2020-10-10 2020-10-10 Outpatient R KRYSTLE [facility] [id number] Univers 09:30:00 09:30:00 NOEL almanzar o tomas [facility] 2020-09-11 2020-09-11 Nurse Visit, [facility] Peoriap Nurse [facility] 1.2 .840.114 [id number] Univers 08:52:07 09:07:07 Visit Janet Daltonperze Jacinto MMI TEACHER 350.1.13.10 ity [facility] 4.2.7.2.686 Jacoby as MATERNAL [id number] [facility] & [address] 2020-09-11 2020-09-11 Outpatient R [facility] [id number] Univers 08:30:00 08:30:00 ity [facility] 2020-09-11 2020-09-11 [facility] [id number] Univers 08:30:00 08:30:00 VENKATAA aleciay o f [facility] 2020-09-11 2020-09-11 Outpatient R [facility] [id number] Univers 08:00:00 08:00:00 ity of [facility] 2020-09-11 2020-09-11 Orders Doctor GUTIERREZ 1.2.840.114 [id number] Univers 00:00:00 00:00:00 Only Unassigned, JACQUELINE 350.1.13.10 ity of [facility] 4.2.7.2.686 Jacoby as [id number] [address] 2020-06-18 2020-06-18 [facility] 1.2 .840.114 [id number] Univers 08:11:30 08:26:30 Visit Noel Dalton MMI TEACHER 350.1.13.10 ity of [address]686 Jacoby as MATERNAL [id number] [facility] & [address] 2020-06-18 2020-06-18 Outpatient R [facility] [id number] Univers 08:00:00 08:00:00 ity of [facility] 2020-03-26 2020-03-26 Nurse Visit, [facility] Nurse [facility] 1.2 .840.114 [id number] Univers 08:23:22 08:40:44 Visit Monika Murrieta MMI TEACHER 350.1.13. 10 ity of [place] [id number] Jacoby as MATERNAL [id number] [address] 2020-03-26 2020-03-26 Outpatient R LIT [facility] [id number] Univers 08:30:00 08:30:00 MONIKA ity o f [facility] 2020-01-02 2020-01-02 Nurse Visit, [facility] Nurse [facility] 1.2 .840.114 [id number] Univers 09:02:44 09:41:12 Visit Noel Dalton MMI TEACHER 350.1.13.10 ity of [place] [id number] Jacoby as MATERNAL [id number] [facility] & CHILD [address] [place] [address] Results Test Description Test Time Test Comments Results Result Comments Source POCT TEST 2023-05-14 13:28:00 Test Item Value Reference Range Interpretation Comme nts POCT PREG (test code = 1605) Negative On board controls acceptable with C Line (test code = 3574) Yes POCT PREG LOT # (test code = 3575) POCT PREG TEST DATE (test code = 3576[id number] 20:10:00 Test Item Value Reference Range Interpretation Comments POCT PREG (test code = 1605) Negative On board controls acceptable with C Yes Line (test code = 3574) POCT PREG LOT # (test code = 3575) POCT PREG TEST DATE (test code = 3576) [facility] [id number] 20:10:00 Test Item Value Reference Range Interpretation Comments POCT PREG (test code = 1605) Negative On board controls acceptable with C Yes Line (test code = 3574) POCT PREG LOT # (test code = 3575) POCT PREG TEST DATE (test code = 3576) [facility] [id number] 15:29:00 Test Item Value Reference Range Interpretation Comments POCT PREG (test code = 1605) Negative On board controls acceptable with C Yes Line (test code = 3574) POCT PREG LOT # (test code = 3575) POCT PREG TEST DATE (test code = 3576) [facility] [id number] 15:29:00 Test Item Value Reference Range Interpretation Comments POCT PREG (test code = 1605) Negative On board controls acceptable with C Yes Line (test code = 3574) POCT PREG LOT # (test code = 3575) POCT PREG TEST DATE (test code = 3576) [facility]
[2023-07-02] MEDS ORDERED: NA CHLORIDE 0.9% 1,000 ML ONE (23:43)
[2023-07-03 00:09] LABS: Absolute Lymphocytes (CBC) 1.6 K/uL (0.7-4.9); Hematocrit 37.6 % (36.0-45.0); Lymphocytes % 10.6 % (15.3-44.8); MCV 80.8 fL (80-100); MPV 6.5 fL (7.6-11.3); Platelets 333 thou/uL (152-406); RBC Red Blood Cell Count 4.65 M/uL (3.86-4.86)
[2023-07-03 00:16] LABS: Specific Gravity 1.007 (1.005-1.030); Urine Bacteria None Seen /HPF (<20); Urine Bilirubin NEGATIVE (Negative); Urine Blood 1+ (Negative); Urine Clarity Turbid (Clear); Urine Color Colorless (Yellow); Urine Glucose NEGATIVE (Negative); Urine Protein NEGATIVE (Negative); Urine RBC <5 /HPF (None Seen); Urine Urobilinogen Normal (Normal); Urine WBC Clump Rare /HPF (None Seen)
[2023-07-03 00:19] LABS: Protime INR 1.23
[2023-07-03] MEDS ORDERED: dexAMETHasone 10 MG/ML VIAL ONE (00:41)
[2023-07-03] MEDS ORDERED: NA CHLORIDE 0.9% 1,000 ML ONE ×2 (00:41→04:59)
[2023-07-03 00:48] LABS: Albumin 3.6 g/dL (3.4-5.0); Bilirubin Direct 0.1 mg/dL (0-0.2); Bilirubin Indirect, Calculated 0.2 mg/dL (0.2-0.8); Bilirubin Total 0.3 mg/dL (0.2-1.0); Magnesium 2.5 mg/dL (1.6-2.4); Potassium 3.4 mEq/L (3.5-5.1); Troponin High Sensitivity 9.4 pg/mL (<58.9)
[2023-07-03 00:49] LABS: Protein, Total 8.4 g/dL (6.4-8.2)
[2023-07-03] MEDS ORDERED: CEFTRIAXONE 1000 MG/VIAL ONE (03:52)
[2023-07-03] MEDS ORDERED: NA CHLORIDE 0.9% 50 ML ONE (03:53)
[2023-07-03] MEDS ORDERED: CLINDAMYCIN 900MG/D5W 900 MG/50 ML IVPB IV ONE (03:53)
--- NOTE | 2023-07-03 03:53 | ER ---
Nurse's Notes [facility] Name: Daphnie Barrientos Age: 32 yrs Sex: Female : 1990 Arrival Date: 07/02/2023 Time: 22:39 Bed 9 Private MD: Diagnosis: Peritonsillar abscess-right Presentation: 07/02 23:15 Chief complaint: Patient states: I have a ba infection in my throat and ear and i went kd3 to the doctor this morning and was sent home with an antibiotic, cetrizine and ibuprofen. Around 7 PM i nearly fainted and my family called EMS. EMS said that my blood pressure was low. At around 10 pm, my rechecked it and it was in the 60's. I do get anemic sometimes. Coronavirus screen: Vaccine status: Patient reports receiving the 2nd dose of the covid vaccine. Ebola Screen: No symptoms or risks identified at this time. Initial Sepsis Screen: Does the patient meet any 2 criteria? No. Patient's initial sepsis screen is negative. Does the patient have a suspected source of infection? No. Patient's initial sepsis screen is negative. Risk Assessment: Do you want to hurt yourself or someone else? Patient reports no desire to harm self or others. Onset of symptoms was July 02, 2023. 23:15 Method Of Arrival: Ambulatory kd3 23:15 Acuity: MAIDA 3 kd3 Triage Assessment: 23:19 General: Appears in no apparent distress. Behavior is calm, cooperative. Pain:. EENT: kd3 Throat is reddened. 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 - Social history:: Smoking status: Patient denies any tobacco usage or history of. Screenin/12 00:04 [facility] ED Fall Risk Assessment (Adult) History of falling in the last 3 months, kd3 including since admission No falls in past 3 months (0 pts) Confusion or Disorientation No (0 pts) Intoxicated or Sedated No (0 pts) Impaired Gait No (0 pts) Mobility Assist Device Used No (0 pt) Altered Elimination No (0 pt) Score/Fall Risk Level 0 - 2 = Low Risk Maintained a safe environment. Abuse screen: Denies threats or abuse. Denies injuries from another. Nutritional screening: No deficits noted. Tuberculosis screening: No symptoms or risk factors identified. Assessment: 00:01 General: Appears uncomfortable, ill, Behavior is calm, cooperative. Neuro: Level of kd3 Consciousness is awake, alert, obeys commands, Oriented to person, place, time, situation. Cardiovascular: Patient's skin is warm and dry. Respiratory: Airway is patent Trachea midline Respiratory effort is even, unlabored, Respiratory pattern is regular, symmetrical. GI: No deficits noted. 00:02 General: Pt reported feeling dizzy from moving from a laying to a sitting position . kd3 03:58 Reassessment: Patient appears in no apparent distress at this time. Patient and/or kl family updated on plan of care and expected duration. Pain level reassessed. Patient is alert, oriented x 3, equal unlabored respirations, skin warm/dry/pink. Patient states feeling better. Patient states symptoms have improved. Vital Signs: 07/02 23:15 BP 102 / 62; Pulse 70; Resp 16; Pulse Ox 98% ; Weight 62.6 kg; Height 5 ft. 3 in. ; kd3 07/03 00:03 BP 91 / 58 Supine; Pulse 68; Resp 19 S; Pulse Ox 100% on R/A; kd3 00:03 BP 99 / 63 Sitting; Pulse 65; Resp 20 S; Pulse Ox 100% on R/A; kd3 00:03 BP 93 / 63 Standing; Pulse 68; Resp 18 S; Pulse Ox 99% on R/A; kd3 00:03 Temp 99(O); kd3 00:41 BP 100 / 65; Pulse 68; Resp 20; Pulse Ox 100% on R/A; kd3 03:58 BP 88 / 58; Pulse 72; Resp 18; Pulse Ox 99% on R/A; kl 04:51 BP 95 / 64; Pulse 70; Resp 15; Pulse Ox 98% on R/A; kl 05:01 Temp 98.1(O); kl 07/02 23:15 Body Mass Index 24.45 (62.60 kg, 160.02 cm) kd3 ED Course: 07/02 22:40 Patient arrived in ED. jj6 23:07 Flaco Echeverria PA is PHCP. cp 23:07 Flaco Wang MD is Attending Physician. cp 23:15 Ju Webb, RN is Primary Nurse. kd3 23:19 Triage completed. kd3 23:19 Arm band placed on right wrist. kd3 23:45 Inserted saline lock: 20 gauge in right antecubital area, using aseptic technique. kd3 Blood collected. 23:55 Chest Single View XRAY In Process Unspecified. EDMS 07/03 00:01 Urinalysis W/Microscopic Sent. kd3 00:01 Basic Metabolic Panel Sent. kd3 00:01 CBC with Diff Sent. kd3 00:01 Hepatic Function Sent. kd3 00:01 Troponin High Sensitivity Sent. kd3 00:01 Ptt, Activated Sent. kd3 00:01 Protime (+inr) Sent. kd3 00:01 Magnesium Sent. kd3 00:01 PREGU Sent. kd3 00:05 Patient has correct armband on for positive identification. Placed in gown. Bed in low kd3 position. Call light in reach. Side rails up X2. Provided Education on: . 00:36 Lactate w/ 2H reflex if indic. Sent. kd3 00:36 Group A Streptococcus Rapid Sc Sent. kd3 00:36 [place] Screen Sent. kd3 00:36 Inserted saline lock: 20 gauge in left antecubital area, using aseptic technique. Blood kd3 collected. 00:41 No provider procedures requiring assistance completed. kd3 02:11 CT Soft Tissue Neck W/contr In Process Unspecified. EDMS 03:51 Mark Aguayo MD is Hospitalizing Provider. cp 04:51 No apparent distress. Resting quietly. Appears to be sleeping. kl 05:02 Patient admitted, IV remains in place. kl Administered Medications: 00:01 Drug: NS 0.9% IV 1000 ml Route: IV; Rate: 1 bolus; Site: right antecubital; kd3 04:52 Follow up: IV Intake: 1000ml kl 04:53 Follow up: IV Intake: 1000ml kl 00:29 Not Given (Patient Refused): Ondansetron IVP 4 mg IVP once; over 2 minutes kd3 00:36 Drug: Decadron - Dexamethasone IVP 10 mg Route: IVP; Site: right antecubital; kd3 04:53 Follow up: Response: No adverse reaction kl 00:36 Drug: NS 0.9% IV 1000 ml Route: IV; Rate: 1 bolus; Site: right antecubital; kd3 03:40 Drug: Rocephin IV 1 grams Route: IV; Rate: calculated rate; Site: right antecubital; 03:58 Follow up: IV Status: Completed infusion; IV Intake: 50ml kl 03:58 Drug: Clindamycin IVPB 900 mg Route: IVPB; Infused Over: 30 mins; Site: right kl antecubital; 04:30 Follow up: IV Status: Completed infusion; IV Intake: 50ml kl 04:51 Drug: NS 0.9% IV 1000 ml Route: IV; Rate: 1 bolus; Site: right antecubital; Medication: 00:04 VIS not applicable for this client. kd3 Intake: 03:58 IV: 50ml; Total: 50ml. kl 04:30 IV: 50ml; Total: 100ml. kl 04:52 IV: 1000ml; Total: 1100ml. kl 04:53 IV: 1000ml; Total: 2100ml. kl Outcome: 03:52 Decision to Hospitalize by Provider. cp 05:02 Admitted to Med/surg accompanied by nurse, via wheelchair, room 229, Report called to travis [place] 05:02 Condition: improved 05:02 Discharge instructions given to patient, family, Instructed on the need for admit, Demonstrated understanding of instructions. 05:34 Patient left the ED. Signatures: Dispatcher [employer] EDLyly Huitron, RN RN Flaco Doan PA PA Renetta Pisano [email or web address] Ju Webb, RN RN kd3
--- NOTE | 2023-07-03 03:53 | EDPHYS ---
Physician Documentation [facility] Name: Daphnie Barrientos Age: 32 yrs Sex: Female : 1990 Arrival Date: 07/02/2023 Time: 22:39 Bed 9 Private MD: ED Physician Flaco Wang HPI: 07/02 23:45 This 32 yrs old Female presents to ER via Ambulatory with complaints of Ear cp Pain, Blood Pressure Problem. 23:45 The patient presents with sore throat, dysphagia, of both solids and liquids. The cp patient describes throat pain as constant. Onset: The symptoms/episode began/occurred for past several days. Severity of symptoms: in the emergency department the symptoms are unchanged, despite home interventions. Associated signs and symptoms: Pertinent positives: dysphagia, earache, fever, Pertinent negatives cough, flu-like symptoms. 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 - Social history:: Smoking status: Patient denies any tobacco usage or history of. ROS: 23:50 Constitutional: Positive for poor PO intake, Negative for body aches, chills, fever. cp 23:50 Eyes: Negative for injury, pain, redness, and discharge. cp 23:50 ENT: Positive for difficulty swallowing, sore throat, Negative for drainage from ear(s), difficulty handling secretions. 23:50 Neck: Positive for pain with movement, pain at rest. 23:50 Cardiovascular: Negative for chest pain, palpitations. 23:50 Respiratory: Negative for cough, shortness of breath, wheezing. 23:50 Abdomen/GI: Negative for abdominal pain, vomiting, diarrhea, constipation. 23:50 : Negative for urinary symptoms. 23:50 Skin: Negative for cellulitis, rash. 23:50 Neuro: Positive for near syncope, Negative for altered mental status, dizziness, headache, weakness. 23:50 All other systems are negative. Exam: 23:35 ECG was reviewed by the Attending Physician. cp 23:55 Constitutional: The patient appears in no acute distress, alert, awake, cp non-diaphoretic, non-toxic, well developed, well nourished, uncomfortable. 23:55 Head/Face: Normocephalic, atraumatic. cp 23:55 Eyes: Periorbital structures: appear normal, Conjunctiva: normal, no exudate, no injection, Sclera: no appreciated abnormality, Lids and lashes: appear normal, bilaterally. 23:55 ENT: External ear(s): are unremarkable, Ear canal(s): are normal, clear, TM's: dullness, bilaterally, Nose: is normal, Mouth: Lips: moist, Oral mucosa: pink and intact, moist, Posterior pharynx: Airway: no evidence of obstruction, patent, Tonsils: bilaterally enlarged, with right markedly larger than left, uvula shifted to left, erythema, that is moderate, Voice: is muffled. 23:55 Neck: ROM/movement: limited range of motion, is not appreciated, Meningeal signs: are not present. 23:55 Chest/axilla: Inspection: normal. 23:55 Cardiovascular: Rate: normal, Rhythm: regular. 23:55 Respiratory: the patient does not display signs of respiratory distress, Respirations: normal, no use of accessory muscles, no retractions, labored breathing, is not present, Breath sounds: are clear throughout, no decreased breath sounds, no stridor, no wheezing. 23:55 Abdomen/GI: Inspection: abdomen appears normal, Palpation: abdomen is soft and non-tender, in all quadrants. 23:55 Back: pain, is absent, ROM is normal. 23:55 Neuro: Orientation: to person, place \T\ time. Mentation: is normal, Motor: moves all fours, strength is normal. Vital Signs: 23:15 BP 102 / 62; Pulse 70; Resp 16; Pulse Ox 98% ; Weight 62.6 kg; Height 5 ft. 3 in. ; kd3 08/12 00:03 BP 91 / 58 Supine; Pulse 68; Resp 19 S; Pulse Ox 100% on R/A; kd3 00:03 BP 99 / 63 Sitting; Pulse 65; Resp 20 S; Pulse Ox 100% on R/A; kd3 00:03 BP 93 / 63 Standing; Pulse 68; Resp 18 S; Pulse Ox 99% on R/A; kd3 00:03 Temp 99(O); kd3 00:41 BP 100 / 65; Pulse 68; Resp 20; Pulse Ox 100% on R/A; kd3 03:58 BP 88 / 58; Pulse 72; Resp 18; Pulse Ox 99% on R/A; kl 04:51 BP 95 / 64; Pulse 70; Resp 15; Pulse Ox 98% on R/A; kl 05:01 Temp 98.1(O); kl 07/02 23:15 Body Mass Index 24.45 (62.60 kg, 160.02 cm) kd3 MDM: 07/02 23:07 Patient medically screened. 07/03 03:35 Data reviewed: vital signs, nurses notes, lab test result(s), radiologic studies, CT cp scan, I have discussed the patient's presentation/case with the attending Emergency Department Physician;. 03:45 Management of patient was discussed with the following: Groundskeeping Maintenance: DR Mccall, ENT, cp will consult and see patient later this morning and requests admission to services of hospitalist. 03:50 Consideration of Admission/Observation Patient was admitted/placed on observation. cp 03:50 Management of patient was discussed with the following: Hospitalist: Carla Yanez NP cp will admit after discussion. Counseling: I had a detailed discussion with the patient and/or guardian regarding: the historical points, exam findings, and any diagnostic results supporting the discharge/admit diagnosis, lab results, radiology results, the need for further work-up and treatment in the hospital. Response to treatment: the patient's symptoms have mildly improved after treatment, and as a result, I will admit patient. 07/02 23:21 Order name: Basic Metabolic Panel; Complete Time: : 3 07/03 03:18 Interpretation: Normal except: K 3.4; GLUC 128. 07/02 23:21 Order name: CBC with Diff; Complete Time: : kd3 07/03 03:19 Interpretation: Normal except: WBC 15.30; MCH 26.3; MPV 6.5; SHARI% 80.1; LYM% 10.6; NEUT cp A 12.3; MNA 1.4. 07/02 23:21 Order name: Hepatic Function; Complete Time: : kd3 07/02 23:21 Order name: Magnesium; Complete Time: : kd3 07/03 03:19 Interpretation: Abnormal: MG 2.5. 07/02 23:21 Order name: Protime (+inr); Complete Time: :08 kd3 07/02 23:21 Order name: Ptt, Activated; Complete Time: 01:08 kd3 07/02 23:21 Order name: Troponin High Sensitivity; Complete Time: 01:08 kd3 07/02 23:35 Order name: Urinalysis W/Microscopic; Complete Time: 01:08 cp 07/02 23:35 Order name: PREGU; Complete Time: 01:08 cp 07/03 00:09 Order name: Strep cp 07/03 00:35 Order name: Grady Screen; Complete Time: 03:18 EDMS 07/03 00:35 Order name: Lactate w/ 2H reflex if indic.; Complete Time: 01:08 EDMS 07/03 00:35 Order name: Group A Streptococcus Rapid Sc; Complete Time: 01:08 EDMS 07/03 01:00 Order name: Throat Culture EDMS 07/03 03:21 Order name: Blood Culture Adult (2) cp 07/03 04:14 Order name: Urinalysis w/ reflexes EDMS 07/03 04:14 Order name: Basic Metabolic Panel EDMS 07/03 04:14 Order name: Basic Metabolic Panel EDMS 07/03 04:14 Order name: CBC with Automated Diff EDMS 07/03 04:14 Order name: CBC with Automated Diff EDMS 07/03 04:14 Order name: Magnesium EDMS 07/03 04:14 Order name: Magnesium EDMS 07/02 23:21 Order name: Chest Single View XRAY kd3 07/03 00:09 Order name: CT Soft Tissue Neck W/contr cp 07/02 23:21 Order name: EKG; Complete Time: 23:21 kd3 07/03 04:07 Order name: CONS Physician Consult EDMS 07/03 04:13 Order name: NPO EDMS 07/02 23:21 Order name: Cardiac monitoring; Complete Time: 23:32 kd3 07/02 23:21 Order name: EKG - Nurse/Tech; Complete Time: 23:32 kd3 07/02 23:21 Order name: IV Saline Lock; Complete Time: 00:01 kd3 07/02 23:21 Order name: Labs collected and sent; Complete Time: 00:01 kd3 07/02 23:21 Order name: NPO; Complete Time: 23:32 kd3 07/02 23:21 Order name: O2 Per Protocol; Complete Time: 00:01 kd3 07/02 23:21 Order name: O2 Sat Monitoring; Complete Time: 00: kd3 07/03 00:03 Order name: Orthostatics; Complete Time: 00: kd3 EC/11 23:35 Rate is 67 beats/min. Rhythm is regular. NH interval is normal. QRS interval is normal. cp QT interval is normal. T waves are Inverted in lead aVR. Interpreted by me. Reviewed by me. Administered Medications: 07/03 00:01 Drug: NS 0.9% IV 1000 ml Route: IV; Rate: 1 bolus; Site: right antecubital; kd3 04:52 Follow up: IV Intake: 1000ml kl 04:53 Follow up: IV Intake: 1000ml kl 00:29 Not Given (Patient Refused): Ondansetron IVP 4 mg IVP once; over 2 minutes kd3 00:36 Drug: Decadron - Dexamethasone IVP 10 mg Route: IVP; Site: right antecubital; kd3 04:53 Follow up: Response: No adverse reaction kl 00:36 Drug: NS 0.9% IV 1000 ml Route: IV; Rate: 1 bolus; Site: right antecubital; kd3 03:40 Drug: Rocephin IV 1 grams Route: IV; Rate: calculated rate; Site: right antecubital; kl 03:58 Follow up: IV Status: Completed infusion; IV Intake: 50ml kl 03:58 Drug: Clindamycin IVPB 900 mg Route: IVPB; Infused Over: 30 mins; Site: right kl antecubital; 04:30 Follow up: IV Status: Completed infusion; IV Intake: 50ml kl 04:51 Drug: NS 0.9% IV 1000 ml Route: IV; Rate: 1 bolus; Site: right antecubital; kl Disposition Summary: 07/03/23 03:52 Hospitalization Ordered Hospitalization Status: Inpatient Admission cp Provider: Mark Aguayo cp Location: Telemetry/MedSurg (Inpatient) cp Condition: Stable cp Problem: new cp Symptoms: have improved cp Bed/Room Type: Standard cp Room Assignment: 229(07/03/23 04:43) eb1 Diagnosis - Peritonsillar abscess - right cp Forms: - Medication Reconciliation Form cp - SBAR form cp - Leadership Thank You Letter cp Signatures: Dispatcher [employer] Lyly Bajwa RN RN Flaco Doan PA PA cp Elsa Carrera, RN RN eb1 Ju Webb RN RN kd3 Corrections: (The following items were deleted from the chart) 01: 00:57 MONO SCREEN PROFILE+I.LAB.BRZ ordered. EDMS EDMS 01:41 00:57 LACTATE+C.LAB.BRZ ordered. EDMS EDMS 03:18 07/02 23:35 This 32 yrs old Female presents to ER via Ambulatory with cp complaints of Ear Pain, Blood Pressure Problem. cp 07/03 03:23 07/02 23:50 Neuro: Positive for syncope, Negative for altered mental status, dizziness, cp headache, weakness, cp 07/03 04:43 03:52 cp eb1
--- NOTE | 2023-07-03 03:56 | P.HP ---
Certification for Inpatient Patient admitted to: Observation With expected LOS: <2 Midnights Patient will require the following post-hospital care: None Practitioner: I am a practitioner with admitting privileges, knowledge of patient current condition, hospital course, and medical plan of care. Services: Services provided to patient in accordance with Admission requirements found in Title 42 Section 412.3 of the Code of Federal Regulations Patient History Date of Service: 07/03/23 Reason for admission: Sore throat History of Present Illness: 32-year-old female presents to the emergency room with ear pressure. She reports stated right jaw pain, swelling, sore throat, trouble swallowing, trouble swallowing liquids. She reports sore throat is constant. Sore throat is 7 out of 10. She denies fever, cough, nausea vomiting diarrhea, abdominal pain. Trouble breathing. Plan to admit for peritonsillar abscess with surgical consult, laboratory evaluation WBCs 15.30, early left shift 80.1, mild hypokalemia at 3.4, UA negative, monoscreen negative, CT soft tissue of the neck ordered, chest x-ray ordered pending result Allergies No Known Allergies Allergy (Verified 11/10/15 00:12) Home Medications: NK [No Home Meds] 11/10/15 - Past Medical/Surgical History Diabetic: No Past Medical History: Patient denies medical history Past Surgical History: Patient denies surgical history - Family History Sister Notes: asthma - Social History Alcohol use: No CD- Drugs: No Caffeine use: No Review of Systems 10-point ROS is otherwise unremarkable Physical Examination - Physical Exam General: Alert, In no apparent distress, Oriented x3, Other (Airway patent, sats 100%) HEENT: Atraumatic, Normocephalic, PERRLA, Other (Peritonsillar abscess,right neck swelling, tonsillar edema, no drooling) Neck: Supple, 2+ carotid pulse no bruit, JVD not distended Respiratory: Clear to auscultation bilaterally, Normal air movement Cardiovascular: No edema, Normal pulses, Regular rate/rhythm Gastrointestinal: Normal bowel sounds, Soft and benign Musculoskeletal: No clubbing, No swelling Integumentary: No rashes, No breakdown Neurological: Normal speech, Normal strength at 5/5 x4 extr - Studies Laboratory Data (last 24 hrs) 07/02/23 07/02/23 07/02/23 23:45 23:45 23:45 WBC 15.30 H Hgb 12.2 Hct 37.6 Plt Count 333 PT 13.5 H INR 1.23 APTT 36.5 Sodium 137 Potassium 3.4 L BUN 7 Creatinine 0.69 Glucose 128 H Magnesium 2.5 H Total Bilirubin 0.3 AST 16 ALT 24 Alkaline Phosphatase 77 Microbiology Data (last 24 hrs): 07/03/23 00:24 Throat Group A Streptococcus Rapid Screen - Final Assessment and Plan - Plan Assessment plan peritonsillar abscess Leukocytosis Mild hypokalemia Sore throat Assessment plan peritonsillar abscess Leukocytosis Sore throat IV fluids, IV antibiotics consult Dr. Mccall As needed analgesics WBCs 15.30, early left shift 80.1, CT soft tissue of the neck ordered, chest x-ray ordered pending result Mild hypokalemia Trend electrolytes replace as needed mild hypokalemia at 3.4 Diet n.p.o. Full code DVT SCDs Discharge Plan: Home Plan to discharge in: 24 Hours - Advance Directives Does patient have a Living Will: No Does patient have a Durable POA for Healthcare: No - Code Status/Comfort Care Code Status: Full Code Physician Review: Patient Assessed, Agree with Above Assessment and Plan Time Spent Managing Pts Care (In Minutes): 50
[2023-07-03] MEDS ORDERED: ONDANSETRON 4 MG/2 ML VIAL IV PRN (04:11)
[2023-07-03] MEDS ORDERED: KETOROLAC 30 MG/ML INJ IV PRN (04:12)
[2023-07-03 06:15] VITALS: BMI 24.4
[2023-07-03] MEDS: NA CHLORIDE 0.9% 1,000 ML IV SCH ×2 (06:17→14:28)
[2023-07-03] MEDS: KCL 20 MEQ/100 mL IVPB 20 MEQ/100 ML BAG IV SCH ×2 (07:08→09:02)
[2023-07-03 08:45] VITALS: O2SAT 98
[2023-07-03] MEDS ORDERED: CLINDAMYCIN 600MG/D5W 50 ML IV SCH ×2 (09:00→16:00)
[2023-07-03] MEDS ORDERED: CLINDAMYCIN PHOSPHATE 600 MG in NA CHLORIDE 0.9% 50 ML IV SCH (09:00)
[2023-07-03] MEDS ORDERED: dexAMETHasone 10 MG/ML VIAL IV SCH (09:00)
[2023-07-03] MEDS ORDERED: CEFTRIAXONE 1,000 MG in NA CHLORIDE 0.9% 50 ML IVPB SCH (09:00)
--- NOTE | 2023-07-03 10:30 | P.PN ---
Date of Service: 07/04/23 Subjective Physical Examination - Physical Exam General: Alert, In no apparent distress, Oriented x3, Other (Airway patent, sats 100%) HEENT: Atraumatic, Normocephalic, PERRLA, Other (Peritonsillar abscess,right neck swelling, tonsillar edema, no drooling) Neck: Supple, 2+ carotid pulse no bruit, JVD not distended Respiratory: Clear to auscultation bilaterally, Normal air movement Cardiovascular: No edema, Normal pulses, Regular rate/rhythm Gastrointestinal: Normal bowel sounds, Soft and benign Musculoskeletal: No clubbing, No swelling Integumentary: No rashes, No breakdown Neurological: Normal speech, Normal strength at 5/5 x4 extr Assessment and Plan -Assessment Assessment plan 1. Peritonsillar abscess 2. Leukocytosis 3. Hypokalemia -Plan Plan 1. Peritonsillar abscess IV fluids, IV antibiotics consult Dr. Mccall As needed analgesics WBCs 15.30, early left shift 80.1, CT soft tissue of the neck ordered, chest x-ray ordered pending result 2. Hypokalemia Trend electrolytes replace as needed Mild hypokalemia at 3.4
[2023-07-03 10:46] LABS: Specific Gravity 1.015 (1.005-1.030); Urine Bacteria None Seen /HPF (<20); Urine Bilirubin NEGATIVE (Negative); Urine Blood Trace (Negative); Urine Clarity Clear (Clear); Urine Color Colorless (Yellow); Urine Glucose NEGATIVE (Negative); Urine Protein NEGATIVE (Negative); Urine RBC <5 /HPF (None Seen); Urine Urobilinogen Normal (Normal)
--- NOTE | 2023-07-03 10:55 | P.CNS ---
Date of Consult: 07/03/23 Reason for consultation: peritonsillar abscess HPI: I was contacted by the emergency room at approximately 3 AM and notified that the patient had arrived to the emergency room complaining of sore throat which is worse on the right side. She had been seen by her PCP and prescribed antibiotics earlier that day but her pain was increasing and worsening and she came to the emergency room. On evaluation by the ER staff, she was noted to have trismus and concern for peritonsillar abscess. She did undergo a CT scan of the neck confirming right peritonsillitis with small fluid collection. She received IV antibiotics, IV steroids and IV hydration and was improved. The ER reported that there was no significant complaint or concern for airway obstruction. The patient was going to be admitted to the hospitalist service for further medical management. ENT consultation was requested in case surgical intervention was necessary. The patient was evaluated by me at approximately 10:30 AM on Wednesday morning, about 7 hours after her initial medical treatment. She reports improvement in her sore throat with the ability to open her mouth more widely though not completely. She denies ear pain. she has not been initiated in regards to an oral challenge. Physical exam: Patient is in no acute distress. She is resting quietly in a reclined position. She is tolerating her secretions well. Her voice has a relatively normal quality with no "hot potato" character. She has mild trismus but has a mouth opening of approximately 3 cm with right tonsil swelling. Laboratory evaluation: Patient had leukocytosis with a WBC of about 15 last night. No new labs are available this morning Radiologic data: Patient's CT of the neck with contrast from July 03, 2023 is reviewed. There is prominence and swelling of the right tonsil with some areas of hyperlucency adjacent to the tonsil but no well-defined rim-enhancing abscess. Assessment: Peritonsillar abscess and peritonsillitis. She appears to be responding appropriately to medical therapy Plan and recommendations: The patient can start on diet as tolerated as no acute surgical intervention is indicated. If the patient does well with oral challenge, she can be discharged to outpatient therapy and follow-up with her PCP. She should contact Dr. Mccall's office or return to the ER if her symptoms are worsening or not resolving over the course of the next 7 to 10 days.
--- NOTE | 2023-07-03 16:21 | P.DS ---
Discharge Date: 07/03/23 Disposition: ROUTINE DISCHARGE Discharge Condition: GOOD Reason for Admission: Sore throat Consultations: Ear nose and throat Brief History of Present Illness: Pt is a 32-year-old female presents to the emergency room with ear pressure. She reports stated right jaw pain, swelling, sore throat, trouble swallowing, trouble swallowing liquids. She reports sore throat is constant. Sore throat is 7 out of 10. She denies fever, cough, nausea vomiting diarrhea, abdominal pain. Trouble breathing. Plan to admit for peritonsillar abscess with surgical consult, laboratory evaluation WBCs 15.30, early left shift 80.1, mild hypokalemia at 3.4, UA negative, monoscreen negative, CT soft tissue of the neck ordered, chest x-ray ordered pending result Hospital Course: Patient has done well during hospitalization. She was seen by ENT physician and decision was made to discharge home after antibiotics. Continue with oral antibiotics at discharge along with prednisone. At this time, patient is clinically doing well and patient is stable for discharge home. She will follow-up with ENT in 1 week. If she has worsening fevers or difficulty with swallowing she is to report back to the emergency room. Vital Signs/Physical Exam: Temp Pulse Resp BP Pulse Ox 98.1 F 74 16 97/60 96 07/03/23 08:00 07/03/23 08:00 07/03/23 08:00 07/03/23 08:00 07/03/23 08:00 General: Alert, In no apparent distress, Oriented x3 Laboratory Data at Discharge: WBC 15.30 thou/uL (4.3-10.9) H 07/02/23 23:45 Hgb 12.2 g/dL (12.0-15.0) 07/02/23 23:45 Hct 37.6 % (36.0-45.0) 07/02/23 23:45 Plt Count 333 thou/uL (152-406) 07/02/23 23:45 PT 13.5 SECONDS (9.5-12.5) H 07/02/23 23:45 INR 1.23 07/02/23 23:45 APTT 36.5 SECONDS (24.3-36.9) 07/02/23 23:45 Sodium 137 mEq/L (136-145) 07/02/23 23:45 Potassium 3.8 mEq/L (3.5-5.1) 07/03/23 11:47 BUN 7 mg/dL (7-18) 07/02/23 23:45 Creatinine 0.69 mg/dL (0.55-1.02) 07/02/23 23:45 Glucose 128 mg/dL (74-106) H 07/02/23 23:45 Magnesium 2.5 mg/dL (1.6-2.4) H 07/02/23 23:45 Total Bilirubin 0.3 mg/dL (0.2-1.0) 07/02/23 23:45 AST 16 U/L (15-37) 07/02/23 23:45 ALT 24 U/L (13-56) 07/02/23 23:45 Alkaline Phosphatase 77 U/L (45-117) 07/02/23 23:45 Home Medications: Hydrocodone 10/APAP 325 [[place] 10/325] 1 tab PO Q6H PRN #20 tab 07/03/23 clindamycin HCL [Clindamycin HCl] 300 mg PO TID #30 cap 07/03/23 predniSONE [Deltasone] 20 mg PO BID #11 tab 07/03/23 New Medications: clindamycin HCL [Clindamycin HCl] 300 mg PO TID #30 cap Hydrocodone 10/APAP 325 [[place] 10/325] 1 tab PO Q6H PRN #20 tab PRN Reason: Pain predniSONE [Deltasone] 20 mg PO BID #11 tab Physician Discharge Instructions: -DC IV and DC home -Follow-up with PCP in 1 to 2 weeks -Follow-up with ENT in 1 to 2 weeks -Please call Dr. Dudley at [phone] if any questions regarding hospital stay -Please call nursing station at [phone] if any nursing or medication questions -Return to the emergency room if symptoms worsen Diet: Regular Activity: Fall precautions Followup: ZACH NGUYEN [Primary Care Provider] - Time spent managing pt's care (in minutes): 35
[2023-07-03 16:28] VITALS: BP 103/59
[2023-07-03 16:29] VITALS: TEMP 98.1
--- NOTE | 2023-07-04 15:30 | EKG ---
Test Date: 2023-07-02 Test Time: 23:28:23 Psychologist Educational: NEEL MEASUREMENT RESULTS: Intervals: Rate: 67 RI: 128 QRSD: 64 QT: 408 QTc: 431 [place]: P: 76 RI: 128 QRS: 51 T: 61 INTERPRETIVE STATEMENTS: Normal sinus rhythm Normal ECG Compared to ECG 11/09/2015 11:10:03 Sinus tachycardia no longer present Electronically Signed On 07-04-23 15:28:42 CDT by Jose Read
--- NOTE | 2023-07-04 18:45 | RAD REPORT ---
EXAM DESCRIPTION: RAD - Chest Single View - 07/02/2023 11:53 pm CLINICAL HISTORY: 32-year-old female with malaise. TECHNIQUE: Single view, AP portable chest was obtained. COMPARISON: None. FINDINGS: Unremarkable cardiac and mediastinal silhouette. Heart size is normal. Lungs are clear without focal opacity, pneumothorax or pleural effusions. The visualized bones are within normal limits. IMPRESSION: No acute cardiopulmonary abnormalities. Electronically signed by: Lenore Guerrero MD 07/03/2023 12:48 AM CDT Due to temporary technical issues with the PACS/Fluency reporting system, reports are being signed by the in house radiologists without review as a courtesy to insure prompt reporting. The interpreting radiologist is fully responsible for the content of the report.
--- NOTE | 2023-07-04 18:47 | RAD REPORT ---
EXAM DESCRIPTION: CT - Soft Tissue Neck W/Contr - 07/03/2023 6:49 am CLINICAL HISTORY: SORE THROAT TECHNIQUE: Axial computed tomography images of the neck with intravenous contrast. Sagittal and co bety reformatted images were created and reviewed. This CT exam was performed using one or more of the following dose reduction techniques: automated exposure control, adjustment of the mA and/or k V according to patient size, and/or use of iterative reconstruction technique. COMPARISON: No relevant prior studies available. FINDINGS: Oropharynx: Enlargement of the palatine tonsils, right greater than left. There is a 1 .6 x 1.3 x 1.6 cm hypodense area with subtle peripheral enhancement within the right palatine tonsil. The airway is mildly effaced and displaced to the left. Mild parapharyngeal edema on the right. Hypopharynx: Unremarkable. Larynx: Partial effacement of the right epiglottic vallecula. Trachea: Unremarkable. Retropharyngeal space: Unremarkable. Submandibular/parotid glands: Unremarkable. Glands are normal in size. Thyroid: Unremarkable. No enlarged or calcified nodules. Bones/joints: No acute fracture. Soft tissues: See above. Vasculature: No acute findings. Lymph nodes: Bilateral cervical lymph nodes measuring up to 1.5 cm in short axis. Lung apices: Unremarkable as visualized. IMPRESSION: Findings compatible with acute tonsillitis. There is a 1.6 x 1.3 x 1.6 cm right tonsil lar abscess. THIS REPORT CONTAINS FINDINGS THAT MAY BE CRITICAL TO PATIENT CARE: The findings were verbally discus sed via telephone conference with YECENIA Johnson, on 07/03/2023 3:36 AM CDT. The results were acknowle dged and understood. Electronically signed by: Lindsey Leiva MD 07/03/2023 3:36 AM CDT Due to temporary technical issues with the PACS/Fluency reporting system, reports are being signed by the in house radiologists without review as a courtesy to insure prompt reporting. The interpreting radiologist is fully responsible for the content of the report.
== END 2023-07-03 16:29 | disposition home or self-care (01) ==
LOC: ER 22:39 → ERHOLD 07-03 04:04 → 2ND 07-03 05:11
PROVIDERS: ADMIT Hospitalist; ATTEND Hospitalist
DX: J36 Peritonsillar abscess (principal); D72.829 Elevated white blood cell count, unspecified; E87.6 Hypokalemia
CPT/HCPCS: 36415; 70491; 71045; 80048; 80076; 81001; 81025; 83605; 83735; 84132; 84484; 85025; 85610; 85730; 86308; 87040; 87070; 87081; 93005; 96365; 96367; 96375; 99285; J0696; J1100; J3480; J7030; Q9967